=== PATIENT | male | born 1945 | race Two or more races ===

== ENCOUNTER → 2017-11-19 | Emergency (ER) | payer OTHER ==
[~2017-11-19] MED LIST: HUMALOG MIX 75/10 ML; HYZAAR 100-121 UDTAB; LEVEMIR100 U/ML; LISINOPRIL10 MG; PLAVIX75 MG; SYNTHROID50 MCG; ZOCOR20 MG
== END | disposition home or self-care (01) ==
LOC: ER 07:35
DX: K94.23 Gastrostomy malfunction (principal); Z43.1 Encounter for attention to gastrostomy

== ENCOUNTER 2024-04-23 07:06 | Emergency (ER) | payer OTHER ==
[~2024-04-23] VITALS: Ht 175.3 cm; Wt 74.8 kg
== END 2024-04-23 11:27 | disposition home or self-care (01) ==
LOC: ER 07:06
DX: T85.528A Displacement of other gastrointestinal prosthetic devices, implants and grafts, initial encounter (principal); I10 Essential (primary) hypertension; E11.9 Type 2 diabetes mellitus without complications; Z79.4 Long term (current) use of insulin